=== PATIENT | female | born 1980 | race Caucasian/White ===

== ENCOUNTER → 2020-12-25 | Outpatient (CLI) | payer OTHER | LOC: EMI 07:59 | DX: G35 Multiple sclerosis (principal); H46.9 Unspecified optic neuritis; R90.82 White matter disease, unspecified | CPT/HCPCS: 70543; 70553; A9577 ==

== ENCOUNTER → 2021-08-29 | Outpatient (CLI) | payer OTHER | LOC: EMI 08-28 14:30 | DX: G35 Multiple sclerosis (principal) | CPT/HCPCS: 70553; A9577 ==

== ENCOUNTER → 2021-09-13 | Outpatient (CLI) | payer OTHER | LOC: EMI 09-09 09:00 | DX: Z53.9 Procedure and treatment not carried out, unspecified reason (principal) | CPT/HCPCS: 70543; A9577 ==